=== PATIENT | female | born 1985 | race African-American/Black ===

== ENCOUNTER 2018-04-14 09:12 | Inpatient (IN) | payer OTHER ==
[2018-04-14 09:48] VITALS: BMI 20.3
--- NOTE | 2018-04-14 15:10 | HP ---
CIWA Score - CIWA Score Nausea/Vomitin-Int. Nausea w/Dry Heave Muscle Tremors: 4-Moderate,w/Arms Extend Anxiety: 4-Mod. Anxious/Guarded Agitation: 3 Paroxysmal Sweats: No Perspiration Orientation: 0-Oriented Tacttile Disturbances: 0-None Auditory Disturbances: 0-None Visual Disturbances: 0-None Headache: 2-Mild CIWA-Ar Total Score: 17 Admission ROS BHS - HPI Chief Complaint: ALCOHOL WITHDRAWAL SX Allergies/Adverse Reactions: Allergies Allergy/AdvReac Type Severity Reaction Status Date / Time No Known Allergies Allergy Verified 04/14/18 11:15 History of Present Illness: 32 Y/O AA/FEMALE WITH A HX OF ALCOHOL,COCAINE AND MARIJUANA DEPENDENCE SEEKING DETOX TX. PT STATES SHE HAD A SEIZURE YESTERDAY AND WAS TAKEN TO THE ER BY HIS "17 YR OLD SON"(ER DISCHARGE PAPERS IN PATIENTS CHART). PT WAS DISCHARGED TODAY AND REFERRED TO DETOX. FIRST TIME HERE AND PT REPORTS HX OF AN OUTPATIENT TREATMENT IN THE PAST. PT REPORTS LONGEST PERIOD OF SOBRIETY OF 6 MONTHS WHILE IN THE OUTPATIENT PROGRAM. PT REPORTS HX HTN AND ON NIFEDIPINE 90 MG PO DAILY( PT REPORTS SHE WAS ON 60 MG BUT DOSE CHANGED IN FEBRUARY DUE TO NONCONTROL - CONFIRMED ON OUTSIDE PHARMACY SITE LIST AND PT REPORTS SHE HAS NOT BEEN COMPLIANT) XV=239/129 TODAY; HX SEIZURES AND ON KEPPRA(SEE SUMMARY). PT HAS A PRIMARY CARE DOCTOR: DR. BLANCA RIVERA AT [facility] [place] ON [address] [place], [place]. Exam Limitations: No Limitations, Intoxication - Ebola screening Have you traveled outside of the country in the last 21 days: No (N) Have you had contact with anyone from an Ebola affected area: No Have you been sick,other than usual withdrawal symptoms: No Do you have a fever: No - Review of Systems Constitutional: Chills, Loss of Appetite, Night Sweats, Changes in sleep EENT: reports: Blurred Vision, Dental Problems (IN POOR REPAIR) Respiratory: reports: Shortness of Breath (HX ASTHMA), Wheezing Cardiac: reports: Lightheadedness GI: reports: Nausea, Poor Appetite, Indigestion : reports: No Symptoms Reported Musculoskeletal: reports: Back Pain, Joint Pain, Muscle Pain Integumentary: reports: Other (GENERALIZED MULTIPLE BODY TATTOOS) Neuro: reports: Seizure (LAST EPISODE ON 04/13/18), Tremors, Unsteady Gait, Dizziness Endocrine: reports: No Symptoms Reported Hematology: reports: No Symptoms Reported Psychiatric: reports: Orientated x3 Other Systems: Reviewed and Negative Patient History - Patient Medical History Hx Anemia: No Hx Asthma: Yes (MDI) Hx Chronic Obstructive Pulmonary Disease (COPD): No Hx Cardiac Disorders: No Hx Hypertension: Yes Hx Hypercholesterolemia: No HX Cerebrovascular Accident: No 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) Hx Diabetes: No Hx Gastrointestinal Disorders: Yes (acid reflux-NO MEDS) Hx Genitourinary Disorders: No Hx Sexually Transmitted Disorders: No Hx Renal Disease (ESRD): No Hx Thyroid Disease: No Hx Human Immunodeficiency Virus (HIV): No (NEGATIVE HX) Hx Hepatitis C: No Hx Depression: No Hx Suicide Attempt: No (DENIES S/I) Hx Schizophrenia: No - Patient Surgical History Past Surgical History: No Hx Neurologic Surgery: No Hx Cataract Extraction: No Hx Cardiac Surgery: No Hx Lung Surgery: No Hx Breast Surgery: No Hx Breast Biopsy: No Hx Abdominal Surgery: No Hx Appendectomy: No Hx Cholecystectomy: No Hx Genitourinary Surgery: No Hx Section: No Hx Orthopedic Surgery: No Anesthesia Reaction: No - PPD History Previous Implant?: Yes Documented Results: Negative w/o proof Implanted On Prior R Admission?: No PPD to be Administered?: Yes - Reproductive History Patient is a Female of Child Bearing Age (11 -55 yrs old): Yes (PT ON TESTOSTERONE TREATMENT) LMP comment: 14 MONTHS AGO Patient : No - Smoking Cessation Smoking history: Current every day smoker Have you smoked in the past 12 months: Yes Aproximately how many cigarettes per day: 2 Hx Chewing Tobacco Use: No Initiated information on smoking cessation: Yes 'Breaking Loose' booklet given: 04/14/18 - Substance & Tx. History Hx Alcohol Use: Yes (VODKA) Hx Substance Use: Yes (COCAINE/ MARIJUANA) Substance Use Type: Alcohol, Cocaine, Marijuana Hx Substance Use Treatment: Yes (LAST TX AT [facility]) - Substances Abused Cocaine Route: Inhalation Frequency: 1-2 times per week Amount used: $20 Age of first use: 17 Date of Last Use: 04/12/18 Alcohol-vodka Route: Oral Frequency: Daily Amount used: 1 pt. Age of first use: 11 Date of Last Use: 04/13/18 Family Disease History - Family Disease History Family Disease History: Other: Grandparent (HTN), Mother (HIV/TB-) Admission Physical Exam [facility] - Vital Signs Vital Signs: Vital Signs - 24 hr 04/14/18 09:42 Temperature 98.3 F Pulse Rate 80 Respiratory 18 Rate Blood Pressure 186/112 - Physical General Appearance: Yes: Moderate Distress, Alcohol on Breath, Tremorous, Irritable, Anxious HEENTM: Yes: EOMI, Normocephalic, JASMYN, Pharynx Normal Respiratory: Yes: Chest Non-Tender, Lungs Clear, Normal Breath Sounds, No Respiratory Distress Neck: Yes: No masses,lesions,Nodules, Supple, Trachea in good position Breast: Yes: Breast Exam Deferred Cardiology: Yes: Regular Rhythm, Regular Rate, S1, S2 Abdominal: Yes: Normal Bowel Sounds, Non Tender, Flat, Soft Genitourinary: Yes: Other (N/C) Back: Yes: Within Normal Limits Musculoskeletal: Yes: full range of Motion, Gait Steady Extremities: Yes: Normal Range of Motion, Non-Tender, Tremors 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, Fully Oriented, Alert, Motor Strength 5/5 Integumentary: Yes: Dry, Warm, Other (GENERALIZED MULTIPLE BODY TATTTOOS) Lymphatic: Yes: Within Normal Limits - Diagnostic (1) Alcohol dependence with uncomplicated withdrawal Current Visit: Yes Status: Acute (2) Cocaine dependence, uncomplicated Current Visit: Yes Status: Acute (3) Cannabis dependence, uncomplicated Current Visit: Yes Status: Acute (4) Hypertension Current Visit: Yes Status: Chronic Qualifiers: Hypertension type: unspecified Qualified Code(s): I10 - Essential (primary ) hypertension (5) Hx of seizure disorder Current Visit: Yes Status: Chronic (6) Asthma Current Visit: Yes Status: Chronic Qualifiers: Asthma severity: unspecified severity Asthma persistence: unspecified Asthma complication type: uncomplicated Qualified Code(s): J45.909 - Unspecified asthma, uncomplicated Cleared for Admission [facility] - Detox or Rehab [facility] Level of Care: Medically Managed Detox Regimen/Protocol: Librium [facility] Breath Alcohol Content Breath Alcohol Content: 0.062 Urine Pregancy Test - Result Urine Test Results: Negative- NO Line Present Urine Drug Screen - Results Drug Screen Negative: No Urine Drug Screen Results: THC-Marijuana, CHARLA-Cocaine
[2018-04-14] MEDS ORDERED: IBUPROFEN 400 MG TABLET (FP) PO PRN (15:53)
[2018-04-14] MEDS ORDERED: LOPERAMIDE HCL 2 MG CAPSULE PO PRN (15:53)
[2018-04-14] MEDS ORDERED: MAG HYDROX/AL HYDROX/SIMETH 30 ML UNIT-DOSE CUP PO PRN (15:53)
[2018-04-14] MEDS ORDERED: MAGNESIUM CITRATE 300 ML BOTTLE PO PRN (15:53)
[2018-04-14] MEDS ORDERED: MENTHOL/PHENOL 1 EACH UD MM PRN (15:53)
[2018-04-14] MEDS ORDERED: ACETAMINOPHEN 325 MG TABLET (FP) PO PRN (15:53)
[2018-04-14] MEDS ORDERED: MAGNESIUM HYDROX 2400MG/30ML ORAL SUSPENSION 30 ML CUP PO PRN (15:53)
[2018-04-14] MEDS ORDERED: NICOTINE POLACRILEX 2 MG GUM BC PRN (15:53)
[2018-04-14] MEDS ORDERED: P-EPHED 60MG/TRIPROLIDI 2.5MG TABLET PO PRN (15:53)
[2018-04-14] MEDS ORDERED: guaiFENesin/D-METHORPHAN HB 10 ML UNIT-DOSE CUPS PO PRN (15:53)
[2018-04-14] MEDS ORDERED: chlordiazePOXIDE HCL 25 MG CAPSULE PO PRN (15:53)
[2018-04-14] MEDS ORDERED: NICOTINE 14 MG/24 HOURS TOPICAL PATCH TD SCH (16:30)
[2018-04-14] MEDS ORDERED: cloNIDine HCL 0.1 MG TABLET PO ONE (18:00)
[2018-04-14] MEDS: chlordiazePOXIDE HCL 25 MG CAPSULE PO SCH ×2 (18:23→22:59)
[2018-04-14] MEDS ORDERED: ALBUTEROL SO4 8 GM HFA INHALER IH PRN (19:22)
--- NOTE | 2018-04-14 19:25 | PN ---
[facility] Progress Note Note: Vital Signs Temperature 98.1 F 04/14/18 18:42 Pulse Rate 77 04/14/18 18:42 Respiratory Rate 16 04/14/18 18:42 Blood Pressure 174/125 04/14/18 18:42 O2 Sat by Pulse Oximetry (%) Patient has not taken BP meds today one time dose of clonidine 0.1 mg stat scheduled HCTZ 25 mg qd ordered today increase fluids continue to monitor
[2018-04-14] MEDS ORDERED: HYDROCHLOROTHIAZIDE 25 MG TABLET (FP) PO SCH (19:30)
[2018-04-14] MEDS ORDERED: NIFEdipine E.R. 30 MG TABLET (FP) PO SCH (20:15)
[2018-04-14] MEDS ORDERED: THIAMINE HCL 100 MG TABLET (FP) PO SCH (22:00)
[2018-04-14] MEDS ORDERED: MELATONIN 5 MG TABLETS PO PRN (22:00)
[2018-04-14] MEDS ORDERED: levETIRAcetam 250 MG TABLET (FP) PO SCH (22:00)
[2018-04-15 01:33] LABS: URINE APPEARANCE CLOUDY; URINE BILIRUBIN NEGATIVE (<2.0 mg/dL); URINE GLUCOSE (UA) NEGATIVE (NEGATIVE); URINE KETONE TRACE (NEGATIVE); URINE NITRITE NEGATIVE (NEGATIVE); URINE UROBILINOGEN 4.0 E.U/dl mg/dL (0.2-1.0)
[2018-04-15 01:34] LABS: URINE COLOR YELLOW; URINE LEUK ESTERASE 2+ (NEGATIVE); URINE PROTEIN 1+ (NEGATIVE)
[2018-04-15 01:40] LABS: EPI CELLS MANY /HPF (FEW); URINE MUCUS FEW
[2018-04-15] MEDS: chlordiazePOXIDE HCL 25 MG CAPSULE PO SCH (05:53)
[2018-04-15 06:58] VITALS: TEMP 97.9
[2018-04-15 07:07] VITALS: BP 116/74; PULSE 104
--- NOTE | 2018-04-15 07:43 | DS ---
[facility] Detox Discharge Summary Admission Date: 04/14/18 Discharge Date: 04/15/18 - History Present History: Alcohol Dependence, Cannabis Dependence, Cocaine Dependence Pertinent Past History: ASTHMA SEIZURE D/O HTN - Physical Exam Results Vital Signs: Vital Signs Temperature 97.9 F 04/15/18 06:00 Pulse Rate 104 H 04/15/18 07:00 Respiratory Rate 18 04/15/18 07:00 Blood Pressure 116/74 04/15/18 07:00 O2 Sat by Pulse Oximetry (%) - Treatment Hospital Course: Discharged Condition Good Patient has Accepted a Rehab Referral to: [facility] - Medication Discharge Medications: Ambulatory Orders Albuterol Sulfate Inhaler - [Ventolin Hfa Inhaler -] 2 inh PO Q4H PRN 04/14/18 Fluticasone Propionate [Flovent Diskus] 220 mcg IH BID 04/14/18 Folic Acid - 1 mg PO DAILY 04/14/18 Hydrochlorothiazide [Hctz -] 25 mg PO DAILY 04/14/18 Loratadine [Claritin -] 10 mg PO DAILY 04/14/18 Multivitamins [Tab-A-Vit -] 1 tab PO DAILY 04/14/18 Nifedipine ER [Procardia XL -] 90 mg PO DAILY 04/14/18 Nifedipine ER [Procardia Xl -] 60 mg PO DAILY 04/14/18 Testosterone Cypionate [Depo-Testosterone] 200 mg IM ASDIR 04/14/18 levETIRAcetam [Keppra -] 250 mg PO BID 04/14/18 - Diagnosis (1) Alcohol dependence with uncomplicated withdrawal Status: Acute (2) Cannabis dependence, uncomplicated Status: Chronic (3) Cocaine dependence, uncomplicated Status: Chronic (4) Asthma Status: Acute Qualifiers: Asthma severity: unspecified severity Asthma persistence: unspecified Asthma complication type: uncomplicated Qualified Code(s): J45.909 - Unspecified asthma, uncomplicated (5) Hx of seizure disorder Status: Chronic (6) Hypertension Status: Chronic Qualifiers: Hypertension type: unspecified Qualified Code(s): I10 - Essential (primary ) hypertension - AMA Did Patient Leave Against Medical Advice: Yes (LEFT FOR PERSONAL REASONS. HAS HOME MEDS.)
[2018-04-15] MEDS ORDERED: LORATADINE 10 MG TABLET PO SCH (10:00)
[2018-04-15] MEDS ORDERED: NIFEdipine E.R. 30 MG TABLET (FP) PO SCH (10:00)
[2018-04-15] MEDS ORDERED: PRENATAL VITAMINS W/ FOLIC ACID TABLET (FP) PO SCH (10:00)
[2018-04-15 10:18] LABS: HEMOGLOBIN 11.7 GM/dL (10.7-15.3)
[2018-04-15 10:21] LABS: HEMATOCRIT 35.3 % (32.4-45.2); MCH 35.7 pg (25.7-33.7); MEAN PLT VOLUME 9.9 fl (7.5-11.1); PLATELET COUNT 145 K/MM3 (134-434); RBC 3.27 M/mm3 (3.60-5.2); WHITE BLOOD COUNT 5.3 K/mm3 (4.0-10.0)
[2018-04-15 10:33] LABS: CHLORIDE 100 mmol/L (98-107); POTASSIUM 3.1 mmol/L (3.5-5.1); SODIUM 140 mmol/L (136-145)
[2018-04-15 11:11] LABS: ALBUMIN 3.4 g/dl (3.4-5.0); ALK PHOS 129 U/L (45-117); ANION GAP 12 MMOL/L (8-16); BILIRUBIN,TOTAL 0.6 mg/dL (0.2-1.0); BLOOD UREA NITROGEN 7 mg/dL (7-18); CALCIUM 8.2 mg/dL (8.5-10.1); CO2 28 mmol/L (21-32); CREATININE 0.8 mg/dL (0.55-1.02); GLUCOSE,RANDOM 79 mg/dL (74-106); SGOT/AST 159 U/L (15-37); SGPT/ALT 63 U/L (12-78)
[2018-04-15 12:13] LABS: SICKLE CELL SCREEN NEGATIVE (NEGATIVE)
[2018-04-15] MEDS ORDERED: chlordiazePOXIDE HCL 25 MG CAPSULE PO SCH (17:00)
--- NOTE | 2018-04-15 19:08 | EKG ---
Test Reason : Blood Pressure : / mmHG Vent. Rate : 064 BPM Atrial Rate : 064 BPM P-R Int : 126 ms QRS Dur : 078 ms QT Int : 408 ms P-R-T Axes : 054 011 053 degrees QTc Int : 420 ms NORMAL SINUS RHYTHM WITH SINUS ARRHYTHMIA SEPTAL INFARCT , AGE UNDETERMINED ABNORMAL ECG NO PREVIOUS ECGS AVAILABLE Confirmed by OLGA LIDIA PAYNE MD ([id number]) on 04/15/2018 7:08:13 PM Referred By: Confirmed By:OLGA LIDIA PAYNE MD
[2018-04-16] MEDS ORDERED: chlordiazePOXIDE 5 MG CAPSULE PO SCH (17:00)
[2018-04-17] MEDS ORDERED: chlordiazePOXIDE HCL 10 MG CAPSULE PO SCH (17:00)
== END 2018-04-15 07:20 | disposition left against medical advice (07) | DRG 770 ==
LOC: YASAS 09:12 → Y6N 15:02
PROVIDERS: ADMIT Surgery; ATTEND Surgery
PROC: HZ2ZZZZ Detoxification Services for Substance Abuse Treatment (ICD-10-PCS; principal; 2018-04-14)
DX: F10.230 Alcohol dependence with withdrawal, uncomplicated (principal); F14.20 Cocaine dependence, uncomplicated; F12.20 Cannabis dependence, uncomplicated; F17.210 Nicotine dependence, cigarettes, uncomplicated; I10 Essential (primary) hypertension; J45.909 Unspecified asthma, uncomplicated; G40.909 Epilepsy, unspecified, not intractable, without status epilepticus; K21.9 Gastro-esophageal reflux disease without esophagitis
CPT/HCPCS: 36415; 80053; 81003; 81015; 85027; 85660; 86593; 93005; 93010; J0735